=== PATIENT | female | born 1990 | race Caucasian/White ===

== ENCOUNTER 2024-03-20 14:24 | Outpatient (CLI) | payer OTHER, SELFPAY ==
--- NOTE | ~2024-03-20 | XR_ITS ---
EXAM: XR pelvis 1-2V DATE: 03/20/2024 14:51 HISTORY: SI PAIN . COMPARISON: None available. FINDINGS: Normal mineralization. No fracture or dislocation. No lytic or blastic lesion. Joint space s are maintained. Ossification of the labral basis noted bilaterally, a sign of mild degenerative bree nge. No erosion or periosteal change. Soft tissues within normal limits. IMPRESSION: Mild early degenerative changes in the bilateral hips. SI joints. Reviewed, dictated and finalized at location K. ECHNICIAN
--- NOTE | ~2024-03-20 | XR_ITS ---
EXAM: XR_CERV2-3V_CR DATE: 03/20/2024 14:51 HISTORY: NECK PAIN . COMPARISON: None available. FINDINGS: Craniocervical association and atlantoaxial joint are aligned. No prevertebral soft tissue swelling. Vertebral bodies are aligned. Vertebral body heights are maintained. Mild disc space narro wing at C4-5 and C5-6. Normal facets and posterior elements. IMPRESSION: Mild cervical degenerative disc disease. Reviewed, dictated and finalized at location K. TROOM DEPUTY
--- NOTE | ~2024-03-20 | XR_ITS ---
EXAM: XR thoracic spine 2V DATE: 03/20/2024 14:51 HISTORY: MID TO LBP . COMPARISON: None available. FINDINGS: Vertebral body alignment intact. Moderate scoliosis. Vertebral body heights preserved. No disc space narrowing. No traumatic malalignment or fracture. Visualized lung parenchyma is clear. IMPRESSION: Moderate scoliosis. Reviewed, dictated and finalized at location K. GER CONVENTION IMPRESSION: Moderate scoliosis.
--- NOTE | ~2024-03-20 | XR_ITS ---
EXAM: XR lumbar spine 2-3V DATE: 03/20/2024 14:51 HISTORY: MID TO LBP . COMPARISON: None available. FINDINGS: Mild scoliosis. 5 nonrib-bearing lumbar-type vertebral bodies. Pedicles intact. Normal vert ebral body alignment. Vertebral body heights preserved. Disc spaces maintained. Normal facets and pos terior elements. No fracture or dislocation. IMPRESSION: Mild scoliosis. Reviewed, dictated and finalized at location K. [employer] HELPER IMPRESSION: Mild scoliosis.
== END 2024-03-20 14:25 | disposition home or self-care (01) ==
LOC: MICIMG 14:28
PROVIDERS: PCP Chiropractor; Visit Provider Chiropractor
DX: M50.321 Other cervical disc degeneration at C4-C5 level (principal); M50.322 Other cervical disc degeneration at C5-C6 level; M53.3 Sacrococcygeal disorders, not elsewhere classified; M41.86 Other forms of scoliosis, lumbar region; M16.0 Bilateral primary osteoarthritis of hip; M41.84 Other forms of scoliosis, thoracic region
CPT/HCPCS: 72040; 72070; 72100; 72170